=== PATIENT | male | born 1990 | race Caucasian/White ===

== ENCOUNTER 2019-11-18 10:54 | Emergency (ER) | payer OTHER ==
[~2019-11-18] VITALS: Ht 177.8 cm; Wt 75.0 kg
[2019-11-18] MEDS ORDERED: AMOX-422 PO (11:33)
[2019-11-18] MEDS ORDERED: PRED20TA PO (11:33)
[2019-11-18 11:49] VITALS: BP 130/68
== END 2019-11-18 11:47 | disposition home or self-care (01) ==
LOC: ER 10:55
DX: J06.9 Acute upper respiratory infection, unspecified (principal); J32.9 Chronic sinusitis, unspecified; Z20.828 Contact with and (suspected) exposure to other viral communicable diseases; Z79.899 Other long term (current) drug therapy
CPT/HCPCS: 36415; 87635; 99284

== ENCOUNTER 2020-10-19 11:05 | Emergency (ER) | payer OTHER ==
[~2020-10-19] VITALS: Ht 180.3 cm; Wt 80.8 kg
[2020-10-19 11:12] VITALS: BP 142/95
[2020-10-19] MEDS ORDERED: AMOX-422 PO (11:54)
[2020-10-19] MEDS ORDERED: PRED20TA PO (11:54)
== END 2020-10-19 13:15 | disposition home or self-care (01) ==
LOC: ER 11:06
DX: J01.90 Acute sinusitis, unspecified (principal); R51.9 Headache, unspecified; R09.89 Other specified symptoms and signs involving the circulatory and respiratory systems; Z79.2 Long term (current) use of antibiotics; Z79.899 Other long term (current) drug therapy
CPT/HCPCS: 99283